=== PATIENT | male | born 1990 | race Caucasian/White ===

== ENCOUNTER 2017-02-13 14:51 | Emergency (ER) ==
[2017-02-13 15:04] VITALS: BP 131/86; TEMP 98; BMI 20.9
--- NOTE | 2017-02-13 15:27 | ED.PDOC ---
General ED Provider: Dr. GIANNA JONES Chief Complaint: Behavioral Complaint Stated Complaint: stressed out, feels like end of the road, went to [facility] to end life, informed family, they called police and brought to ER for the evaluation Time Seen by Physician: 15:25 Information Source: Patient Primary Care Provider: GUSTABO MORIN Nursing and Triage Documentation Reviewed and Agree: Yes Psychological Complaint Exam - Psychiatric Complaint/Exam Patient Complains Of: Present: Depression, Suicidal thoughts Symptoms Are: Still present Timing: Constant Episodes Lasting: Days Initial Severity: Moderate Current Severity: Moderate Character: Present: Depressed, Anxious, Frustrated Aggravating: Reports: None Associated Signs And Symptoms: Denies: Hostile, Confused, Hallucinating, Paranoid behavior, Sleep disturbance, Appetite change Related History: Reports: Suicidal thoughts, Suicidal plan Completed Suicide Risk Factors: None Patient Accompanied By: Police Patient In Custody Of Police: No Social Withdrawal Present: Yes Social Isolation Present: Yes Prior Suicide Attempt: No Injury From Prior Suicide Attempt: No Related Surgical History: Reports: None Patient Uncooperative For Exam: No Mood: Present: Depressed, Anxious Appearance: Present: Clean Thought Process: Present: Logical Insight: Present: Good Memory: Intact Judgement: Normal Danger To Others: No Patient Medically Stable For: Psych evaluation Differential Diagnoses: Depression, Suicidal Ideation Review of Systems - Review Of Systems Constitutional: Reports: Weakness Eyes: Reports: No symptoms Ears, Nose, Mouth, Throat: Reports: No symptoms Respiratory: Reports: No symptoms Cardiac: Reports: No symptoms GI: Reports: No symptoms : Reports: No symptoms Musculoskeletal: Reports: No symptoms Skin: Reports: No symptoms Neurological: Reports: Anxiety, Depressed, Emotional problems Endocrine: Reports: No symptoms Hematologic/Lymphatic: Reports: No symptoms All Other Systems: Reviewed and Negative Past Medical History - Past Medical History Previously Healthy: Yes Endocrine: Reports: None Cardiovascular: Reports: None Respiratory: Reports: None Hematological: Reports: None Gastrointestinal: Reports: None Genitourinary: Reports: None Neuro/Psych: Reports: None Musculoskeletal: Reports: None Cancer: Reports: None - Surgical History General Surgical History: Reports: Other (cyst removed from the face.) - Family History Family History: Reports: None - Social History Smoking Status: Current every day smoker, Light tobacco smoker Smoking Cessation Counseling Time: > 3 min - 10 min Hx Substance Use: Yes (marajuana) Alcohol Screening: Occasionally - Immunizations Tetanus Shot up to Date: Yes Physical Exam - Physical Exam Appearance: Well-appearing, No pain distress, Well-nourished Eyes: [place], EOMI, Conjunctiva clear ENT: Ears normal, Nose normal, Oropharynx normal Respiratory: Airway patent, Breath sounds clear, Breath sounds equal, Respirations nonlabored Cardiovascular: RRR, Pulses normal, No rub, No murmur GI/: Soft, Nontender, No masses, Bowel sounds normal, No Organomegaly Musculoskeletal: Normal strength, ROM intact, No edema, No calf tenderness Skin: Warm, Dry, Normal color Neurological: Sensation intact, Motor intact, Reflexes intact, Cranial nerves intact, Alert, Oriented Psychiatric: Affect appropriate, Mood appropriate Critical Care Note - Critical Care Note Total Time (mins): 0 Course - Course Hematology/Chemistry: 02/13/17 15:25 02/13/17 15:25 Orders, Labs, Meds: Lab Review 02/13/17 02/13/17 15:25 16:20 WBC 8.79 RBC 5.01 Hgb 16.2 Hct 45.9 MCV 91.6 MCH 32.3 H MCHC 35.3 RDW Coeff of Kay 12.7 Plt Count 194 Immature Gran % (Auto) 0.3 Neut % (Auto) 68.2 Lymph % (Auto) 25.1 Garza % (Auto) 5.5 Eos % (Auto) 0.6 Baso % (Auto) 0.3 Immature Gran # (Auto) 0.0 Neut # 6.0 Lymph # 2.2 Garza # 0.5 Eos # 0.1 Baso # 0.0 Sodium 141 Potassium 3.4 L Chloride 105 Carbon Dioxide 27 Anion Gap 12.4 BUN 6 L Creatinine 0.97 Estimated GFR (MDRD) 95.00 BUN/Creatinine Ratio 6.18 Glucose 108 H Calcium 9.3 Total Bilirubin 0.34 AST 25 ALT 27 Alkaline Phosphatase 52 Total Protein 6.6 Albumin 4.3 Globulin 2.3 Albumin/Globulin Ratio 1.87 TSH 0.472 Urine Color Yellow Urine Clarity Clear Urine pH 7.5 Ur Specific [place] 1.015 Urine Protein Negative Urine Glucose (UA) Negative Urine Ketones Negative Urine Blood Negative Urine Nitrite Negative Urine Bilirubin Negative Urine Urobilinogen 0.2 Ur Leukocyte Esterase Negative Salicylate Level mg/dL < 5.0 Urine Opiates Screen Negative Ur Oxycodone Screen Negative Urine Methadone Screen Negative Ur Propoxyphene Screen Negative Acetaminophen < 3 L Ur Barbiturates Screen Negative U Tricyclic Antidepress Negative Ur Phencyclidine Scrn Negative Ur Amphetamine Screen Negative U Methamphetamines Scrn Negative U Benzodiazepines Scrn Negative Urine Cocaine Screen Negative U Cannabinoids Screen Positive Plasma/Serum Alcohol < 10.0 Orders Category Date Time Status ACETAMINOPHEN Stat LAB 02/13/17 15:25 Completed BLOOD ALCOHOL Stat LAB 02/13/17 15:25 Completed CBC W/ AUTO DIFF Stat LAB 02/13/17 15:25 Completed COMPREHENSIVE METABOLIC PANEL Stat LAB 02/13/17 15:25 Completed DRUG SCREEN, URINE, RAPID Stat LAB 02/13/17 16:20 Completed SALICYLATE Stat LAB 02/13/17 15:25 Completed THYROID STIMULATING HORMONE Stat LAB 02/13/17 15:25 Completed URINALYSIS C & S IF INDICATED Stat LAB 02/13/17 16:20 Completed Vital Signs: Temp Pulse Resp BP Pulse Ox 02/13/17 14:52 98 F 93 H 20 131/86 96 Departure - Departure Time of Disposition: 16:26 Disposition: HOME SELF-CARE Discharge Problem: Problem behavior, Suicidal ideation Instructions: Suicide Prevention for Adults (ED) Condition: Stable Pt referred to PMD for follow-up: Yes Additional Instructions: Mental health counselor talked to patient, and advised out patient follow ups patient has good support from mother and sister. Allergies/Adverse Reactions: Allergies No Known Allergies Allergy (Unverified 02/13/17 15:06) Home Medications: Ambulatory Orders 1 [No Reported Medications] 02/13/17 Disposition Discussed With: Patient, Family
[2017-02-13 15:33] LABS: BASOPHILS % (AUTO) 0.3 % (0.0-3.0); EOSINOPHILS # (AUTO) 0.1 K/ul (0.0-0.7); EOSINOPHILS % (AUTO) 0.6 % (0.0-7.0); HEMATOCRIT 45.9 % (42.0-52.0); HEMOGLOBIN 16.2 g/dl (14.0-18.0); IMMATURE GRANULOCYTE % (AUTO) 0.3 % (0.0-5.0); LYMPHOCYTES # (AUTO) 2.2 K/uL (0.60-3.4); LYMPHOCYTES % (AUTO) 25.1 (10.0-50.0); MEAN CORPUSCULAR HEMOGLOBIN 32.3 pg (27.0-31.0); MEAN CORPUSCULAR HGB CONC 35.3 (31.8-35.4); MEAN CORPUSCULAR VOLUME 91.6 fl (80.0-94.0); MONOCYTES # (AUTO) 0.5 K/uL (0.4-2.0); MONOCYTES % (AUTO) 5.5 (0-10); NEUTROPHILS % (AUTO) 68.2; PLATELET COUNT 194 10^3/uL (140-440); RED BLOOD COUNT 5.01 10^6/ul (4.70-6.10); WHITE BLOOD COUNT 8.79 K/ul (4.2-10.2)
[2017-02-13 16:13] LABS: ACETAMINOPHEN < 3 ug/ml (10-30); ALANINE AMINOTRANSFERASE 27 U/L (12-78); ALBUMIN 4.3 g/dL (3.4-5.0); ALBUMIN/GLOBULIN RATIO 1.87; ALKALINE PHOSPHATASE 52 U/L (50-136); ANION GAP 12.4; ASPARTATE AMINO TRANSFERASE 25 U/L (15-37); BILIRUBIN,TOTAL 0.34 mg/dL (0.00-1.20); BLOOD UREA NITROGEN 6 mg/dL (7-18); BUN/CREATININE RATIO 6.18; CALCIUM 9.3 mg/dL (8.2-10.2); CARBON DIOXIDE 27 mmol/L (21-32); CHLORIDE 105 mmol/L (98-107); CREATININE 0.97 mg/dL (0.60-1.10); GLUCOSE 108 mg/dL (70-100); POTASSIUM 3.4 mmol/L (3.5-5.1); SALICYLATE < 5.0 mg/dL (2.8-20.0); SODIUM 141 mmol/L (136-145); TOTAL PROTEIN 6.6 g/dL (6.4-8.2)
[2017-02-13 16:24] LABS: BILIRUBIN,URINE Negative (NEGATIVE); KETONES,URINE Negative (NEGATIVE); LEUKOCYTE ESTERASE ,URINE Negative (NEGATIVE); NITRITE,URINE Negative (NEGATIVE); PH,URINE 7.5 (5-9); PROTEIN,URINE Negative (NEGATIVE); URINE, BLOOD Negative (NEGATIVE)
[2017-02-13 16:25] LABS: ADD URINE MICROSCOPIC NO
[2017-02-13 16:33] LABS: COCAIN SCREEN,URINE NEGATIVE (NEGATIVE)
== END 2017-02-13 16:42 | disposition home or self-care (01) ==
LOC: ED 14:51
DX: R45.851 Suicidal ideations (principal); F32.9 Major depressive disorder, single episode, unspecified; F12.90 Cannabis use, unspecified, uncomplicated; R53.1 Weakness; F17.210 Nicotine dependence, cigarettes, uncomplicated
CPT/HCPCS: 36415; 80053; 80306; 80307; 81001; 84443; 85025; 99283

== ENCOUNTER 2017-03-12 12:03 | Emergency (ER) ==
[2017-03-12 12:03] VITALS: BMI 20.9
[2017-03-12 12:07] VITALS: BP 128/81; TEMP 98.4
--- NOTE | 2017-03-12 12:24 | ED.PDOC ---
General ED Provider: Dr. DILSHAD SANTOS Chief Complaint: Earache Stated Complaint: Patient states he has had pain on the right side of neck right ear and mandible and temporal area. Time Seen by Physician: 12:24 Mode of Arrival: Walk-In Information Source: Patient Exam Limitations: No limitations Primary Care Provider: GUSTABO MORIN Nursing and Triage Documentation Reviewed and Agree: Yes Review of Systems - Review Of Systems Constitutional: Reports: No symptoms Eyes: Reports: No symptoms Ears, Nose, Mouth, Throat: Reports: Mouth pain Respiratory: Reports: No symptoms Cardiac: Reports: No symptoms GI: Reports: No symptoms : Reports: No symptoms Musculoskeletal: Reports: No symptoms Skin: Reports: No symptoms Neurological: Reports: No symptoms Endocrine: Reports: No symptoms Hematologic/Lymphatic: Reports: No symptoms All Other Systems: Reviewed and Negative Past Medical History - Past Medical History Previously Healthy: Yes Endocrine: Reports: None Cardiovascular: Reports: None Respiratory: Reports: None Hematological: Reports: None Gastrointestinal: Reports: None Genitourinary: Reports: None Neuro/Psych: Reports: Depression Musculoskeletal: Reports: None Cancer: Reports: None - Surgical History General Surgical History: Reports: Other (cyst removed from the face.) - Family History Family History: Reports: None - Social History Smoking Status: Current every day smoker, Light tobacco smoker Hx Substance Use: Yes ([facility]) Alcohol Screening: Occasionally Physical Exam - Physical Exam Appearance: Well-appearing, No pain distress, Well-nourished Eyes: [place], EOMI, Conjunctiva clear ENT: Ears normal, Nose normal, Oropharynx normal Respiratory: Airway patent, Breath sounds clear, Breath sounds equal, Respirations nonlabored Cardiovascular: RRR, Pulses normal, No rub, No murmur GI/: Soft, Nontender, No masses, Bowel sounds normal, No Organomegaly Musculoskeletal: Normal strength, ROM intact, No edema, No calf tenderness Skin: Warm, Dry, Normal color Neurological: Sensation intact, Motor intact, Reflexes intact, Cranial nerves intact, Alert, Oriented Psychiatric: Affect appropriate, Mood appropriate Critical Care Note - Critical Care Note Total Time (mins): 0 Course - Course Vital Signs: Temp Pulse Resp BP Pulse Ox 03/12/17 12:04 98.4 F 62 14 128/81 97 Departure - Departure Time of Disposition: 12:34 Disposition: HOME SELF-CARE Discharge Problem: Dental caries, Dental abscess Instructions: Dental Abscess (ED), Dental Caries (ED) Condition: Stable Pt referred to PMD for follow-up: Yes Additional Instructions: Follow up with the Dentist in 3 days Take medications as prescribed Prescriptions: Amoxicillin [Amoxil] 500 mg PO TID #30 capsule Ibuprofen [Motrin] 600 mg PO Q6H PRN #30 tablet PRN Reason: Analgesia Tramadol HCl [Ultram] 50 mg PO Q6H PRN #20 tablet PRN Reason: Severe Pain Allergies/Adverse Reactions: Allergies No Known Allergies Allergy (Unverified 03/12/17 12:07) Home Medications: Ambulatory Orders Amoxicillin [Amoxil] 500 mg PO TID #30 capsule 03/12/17 Ibuprofen [Motrin] 600 mg PO Q6H PRN #30 tablet 03/12/17 Tramadol HCl [Ultram] 50 mg PO Q6H PRN #20 tablet 03/12/17 Disposition Discussed With: Patient
== END 2017-03-12 12:50 | disposition home or self-care (01) ==
LOC: ED 12:03
DX: K04.7 Periapical abscess without sinus (principal); K02.7 Dental root caries; F17.210 Nicotine dependence, cigarettes, uncomplicated
CPT/HCPCS: 99282